=== PATIENT | male | born 1960 | race Caucasian/White ===

== ENCOUNTER 2022-07-05 08:30 | Inpatient (IN) | payer MEDICAID ==
[~2022-07-05] VITALS: Ht 180.3 cm; Wt 99.7 kg
[~2022-07-05 08:30] MED LIST: ALBU18HF2 IH; ATOR10TA87 PO; CARV3.12 PO; FURO-150 PO; LOSA25TA96 PO; POTA8CAP20 PO
[2022-07-05 09:27] LABS: BASOPHILS # (AUTO) 0.1 X10'3 (0-0.2); BASOPHILS % (AUTO) 0.7 % (0-1); EOSINOPHILS % (AUTO) 0.3 % (0-6); HEMATOCRIT 37.8 % (42.0-52.0); HEMOGLOBIN 12.5 g/dl (14.0-17.9); LYMPHOCYTES # (AUTO) 0.5 X10'3 (1.1-4.8); LYMPHOCYTES % (AUTO) 4.7 % (21-51); MEAN CORPUSCULAR HEMOGLOBIN 31.5 PG (27.0-31.0); MEAN CORPUSCULAR VOLUME 95.6 FL (78-98); MEAN PLATELET VOLUME 10.7 FL (7.4-10.4); MONOCYTES # (AUTO) 1.1 X10'3 (0-0.9); MONOCYTES % (AUTO) 10.5 % (2-12); NEUTROPHILS # (AUTO) 8.8 X10'3 (1.8-7.7); NEUTROPHILS % (AUTO) 83.8 % (42-75); PLATELET COUNT 191 X10'3 (140-440); RED BLOOD COUNT 3.95 X10'6 (4.70-6.10); RED CELL DISTRIBUTION WIDTH 14.2 % (11.5-14.5); WHITE BLOOD COUNT 10.5 X10'3 (4.5-11.0)
[2022-07-05 09:28] LABS: ALANINE AMINOTRANSFERASE 45 U/L (12-78); ALBUMIN 3.4 G/DL (3.4-5.0); ALBUMIN/GLOBULIN RATIO 0.9 (1.1-1.5); ALKALINE PHOSPHATASE 93 IU/L (46-116); ANION GAP 10 (8-16); ASPARTATE AMINO TRANSFERASE 34 U/L (10-37); BILIRUBIN,TOTAL 1.6 MG/DL (0.1-1.0); BLOOD UREA NITROGEN 23 MG/DL (7-18); BUN/CREATININE RATIO 12.7 (5.4-32.0); CALCIUM 8.5 MG/DL (8.5-10.1); CHLORIDE 103 MMOL/L (99-107); CREATININE 1.81 MG/DL (0.60-1.10); GLUCOSE 133 MG/DL (70-104); POTASSIUM 4.3 MMOL/L (3.5-5.1); SODIUM 136 MMOL/L (135-145); TOTAL CARBON DIOXIDE 23.1 MMOL/L (24-32); TOTAL PROTEIN 7.1 G/DL (6.4-8.2); eGFR 38 ML/MIN
[2022-07-05] MEDS ORDERED: heparin 10,000 units/1 ML INJ IV PRN (10:30)
[2022-07-05] MEDS ORDERED: nitroGLYCERIN 0.4mg/hour patch TD ONE (10:30)
[2022-07-05] MEDS ORDERED: furosemide 10 MG/1 ML 10ml inj IV ONE (10:35)
[2022-07-05] MEDS ORDERED: amiodarone 150mg/dext, iso-os 100 ML IV ONE (10:35)
[2022-07-05 10:39] LABS: MAGNESIUM 1.9 MG/DL (1.5-2.4)
[2022-07-05 10:41] LABS: APTT 26 SECONDS (22-32)
[2022-07-05 10:46] LABS: ETHANOL < 0.010 GM/DL (0.0-0.010)
[2022-07-05] MEDS ORDERED: carvedilol 6.25mg tablet PO ONE (10:54)
[2022-07-05 10:55] LABS: D-DIMER 2.59 MG/L FEU (0-0.50)
[2022-07-05] MEDS ORDERED: heparin 25,000 UNIT/250ml bag 250 ML IV PRN (11:02)
[2022-07-05] MEDS ORDERED: potassium Cl 20 mEq SR tablet PO PRN ×2 (11:15)
[2022-07-05] MEDS ORDERED: acetaminophen 325mg tablet PO PRN (11:15)
[2022-07-05] MEDS ORDERED: ondansetron/PF 4mg/2ml inj IV PRN (11:15)
[2022-07-05] MEDS ORDERED: magnesium 4gm in 100ml NS 100 ML IV PRN (11:15)
[2022-07-05] MEDS ORDERED: magnesium hydroxide 30ml (MOM) UD suspension PO PRN (11:15)
[2022-07-05] MEDS ORDERED: mag hydrox/Alum hydrox/simeth 30ml oral suspension PO PRN (11:15)
[2022-07-05] MEDS ORDERED: magnesium Cl slow-release 64mg tablet PO PRN (11:15)
[2022-07-05] MEDS ORDERED: potassium Cl 40MEQ/1/2NS 520ml 520 ML IV PRN (11:15)
[2022-07-05] MEDS: K and/or MAG REPLACEMENT MC SCH (11:37)
--- NOTE | 2022-07-05 14:10 | NUR ---
Relieve RN for lunch break. Pt sitting at bedside, resp even and unlabored. No complaint of CP/ chest discomfort. No SOB. Patient on herparin gtt. IV clear and patent, rt inner wrist.
[2022-07-05] MEDS ORDERED: BUME1TAB8 PO (14:32)
[2022-07-05] MEDS ORDERED: ALBU18HF2 INH (14:32)
[2022-07-05] MEDS ORDERED: AMIO200T27 PO (14:32)
[2022-07-05] MEDS ORDERED: LOSA25TA41 PO (14:32)
[2022-07-05] MEDS ORDERED: SPIR25TA5 PO (14:32)
[2022-07-05] MEDS ORDERED: APIX5TAB3 PO (14:32)
[2022-07-05] MEDS ORDERED: OMEP20CA15 PO (14:32)
[2022-07-05] MEDS ORDERED: METO-384 PO (14:32)
[2022-07-05] MEDS ORDERED: LORazepam 2 mg/ml vial IV PRN (14:45)
[2022-07-05] MEDS ORDERED: haloperidol lactate 5mg/ml inj IM PRN (14:45)
[2022-07-05] MEDS ORDERED: haloperidol 5mg tablet PO PRN (14:45)
--- NOTE | 2022-07-05 16:00 | NUR ---
Patient in room PCU 3018. I have received report from Marcial WANG and had the opportunity to ask questions and assume patient care. Pt settled into room. instructions given for call light, TV,and phone. at bedside.POC reviewed.
[2022-07-05 16:26] VITALS: BP 107/61
--- NOTE | 2022-07-05 16:40 | NUR ---
PAGER ID: [phone] MESSAGE: [id number] Clum. C/O pain in ABD 01/31 D/T coughing he thinks. Can you consider pain meds for him. Sarah [facility] #[id number]
[2022-07-05] MEDS ORDERED: HYDROcodone/acetaminophen 10/325mg tab PO PRN (16:50)
[2022-07-05] MEDS ORDERED: HYDROcodone/acetaminophen 5mg/325mg tablet PO PRN (16:50)
[2022-07-05 18:00] VITALS: BP 111/90
--- NOTE | 2022-07-05 18:03 | NUR ---
RT at bedside. Pt having a hard time with SOB.
[2022-07-05 18:06] LABS: LIPASE 73 U/L (73-393)
[2022-07-05] MEDS ORDERED: ipratropium/albuterol 3ml nebule NEB PRN ×2 (18:15→22:20)
--- NOTE | 2022-07-05 18:24 | NUR ---
PAGER ID: [phone] MESSAGE: [id number] Clum. Family states Pt didnt understand the real meaning of DNR. Pt looks like he is going to code soon. Sarah otero 1001
--- NOTE | 2022-07-05 18:41 | NUR ---
code status changed to full code via telephone with Dr Bartlett witnessed by Sarah Calderon RN and Glo Aguilar RN. Glo and went to bedside and , Daughter both wanted full code status. Pt unable to verbalize wished at this time.
--- NOTE | 2022-07-05 18:55 | NUR ---
Problems reprioritized. Patient report given, questions answered & plan of care reviewed with Katey WANG and soldering machine setter. Family remains at bedside. Pt sleeping. Diapiretic. BP 84/65 HR 108. O2 sat 98% on 2L. DNR band removed at family request. They do not believe Pt knew what it really meant. Dr Bartlett notified. Code status changed. Pt not alert enough to question D/T ativan 2mg iv given per Dr Bartlett order. Dr Bartlett had a discussion with PT prior to administration in regard to potential side effect on kidney function. Pt stated he wanted ativan despite side effect. Addendum: 07/05/22 at 1903 by Sarah Calderon RN Amended: Links added.
--- NOTE | 2022-07-05 19:08 | NUR ---
Patient in room PCU 3018. I have received report from Sarah WANG and had the opportunity to ask questions and assume patient care. Patient code status changed from DNR to Full Code, Per Dhruv. Patient has Bipap available, patient diaphoretic, VS stable, RT performed ABG; results acceptable for remaining on 2 l NC, Per RT. Patient s family at bedside. Vital signs taken q15 minutes currently. Matias Gracia RN
[2022-07-05 19:13] VITALS: BP 136/85
[2022-07-05 19:14] LABS: ABG BASE EXCESS -1.3 mmol/L (-2.0-2.0); ABG HCO3 22.9 mmol/L (22.0-26.0); ABG OXYGEN SATURATION 95.2 % (94-97); ABG PO2 (T) 82.4 mmHg (75.0-100.0); ALLEN'S TEST POSITIVE; FCOHb 0.5 % (0.0-3.9); FMetHb 0.2 % (0.0-1.5); FO2Hb 94.5 % (94-97); PATIENT TEMPERATURE 37.8; TOTAL HEMOGLOBIN 13.5 G/dl (14.0-17.9)
[2022-07-05] MEDS: furosemide 10 MG/1 ML 10ml inj IV SCH (19:26)
--- NOTE | 2022-07-05 19:28 | NUR ---
3018b-ADOLFO HULL-REQUESTING BUTT-PATIENT ON LASIX-CODE STATUS CHANGED FROM DNR TO FULL-PATIENT OBTUNDED-GOT 2 MG ATIVAN ON DAY SHIFT. PLEASE CALL CED Jasso CYNTHIA RN
[2022-07-05] MEDS: enoxaparin 100mg/ml syringe SUBCUT SCH (19:32)
[2022-07-05] MEDS: metoprolol tartrate 50mg tablet PO SCH (19:47)
[2022-07-05] MEDS ORDERED: apixaban 5mg tablet PO SCH (20:00)
[2022-07-05] MEDS: docusate sod 100mg capsule PO SCH (20:00)
[2022-07-05] MEDS ORDERED: LIDOcaine 2% 10ml TOPICAL JELLY (Urojet) MM ONE (20:35)
[2022-07-05 21:00] VITALS: BP 150/125
[2022-07-05 21:39] LABS: BASOPHILS % (AUTO) 0.3 % (0-1); EOSINOPHILS % (AUTO) 0.2 % (0-6); HEMATOCRIT 40.2 % (42.0-52.0); HEMOGLOBIN 13.2 g/dl (14.0-17.9); LYMPHOCYTES # (AUTO) 0.8 X10'3 (1.1-4.8); LYMPHOCYTES % (AUTO) 7.4 % (21-51); MEAN CORPUSCULAR HEMOGLOBIN 31.7 PG (27.0-31.0); MEAN CORPUSCULAR HGB CONC 32.9 g/dL (33.0-36.5); MEAN CORPUSCULAR VOLUME 96.2 FL (78-98); MEAN PLATELET VOLUME 10.8 FL (7.4-10.4); MONOCYTES # (AUTO) 1.3 X10'3 (0-0.9); MONOCYTES % (AUTO) 12.1 % (2-12); NEUTROPHILS # (AUTO) 8.3 X10'3 (1.8-7.7); PLATELET COUNT 214 X10'3 (140-440); RED BLOOD COUNT 4.18 X10'6 (4.70-6.10); RED CELL DISTRIBUTION WIDTH 14.4 % (11.5-14.5); WHITE BLOOD COUNT 10.4 X10'3 (4.5-11.0)
--- NOTE | 2022-07-05 21:50 | NUR ---
PATIENT MONITORED Q15 MINUTES BEGINNING AT 1913 DUE TO UNSTABLE NATURE OF PATIENT MENTATION AND RESPIRATORY STATUS AT 1800, AND DUE TO CODE STATUS CHANGE DURING SHIFT CHANGE. PATIENT AGITATED, CLIMBING OUT OF BED-ANSWERED CALL FROM DR. NORRIS AT [facility] REGARDING CRITICAL POTASSIUM OF 6.2 SIMULTANEOUSLY REQUESTED AIDE TO MONITOR PATIENT WHILE OBTAINING MEDICATION AND RESTRAINT ORDERS. AIDE ENTERED ROOM, FOUND PATIENT ON GROUND. PATIENT THEN ASSISTED BACK TO BED BY APPROXIMATELY 2220 BY [facility], ASSISTANT CLINICAL DIRECTOR CALLED DENIA HOLLOWAY FOR ASSISTANCE. PATIENT SUBSEQUENTLY RESTRAINED, VITAL SIGNS OBTAINED AND AND MEDICATIONS ADMINISTERED. NO OTHER PROVIDER ORDERS AT THIS TIME. RODRIGO WANG
[2022-07-05 21:51] LABS: ALANINE AMINOTRANSFERASE 631 U/L (12-78); ALBUMIN 3.7 G/DL (3.4-5.0); ALBUMIN/GLOBULIN RATIO 0.9 (1.1-1.5); ALKALINE PHOSPHATASE 102 IU/L (46-116); ANION GAP 9 (8-16); ASPARTATE AMINO TRANSFERASE 778 U/L (10-37); BILIRUBIN,TOTAL 3.4 MG/DL (0.1-1.0); BLOOD UREA NITROGEN 29 MG/DL (7-18); BUN/CREATININE RATIO 11.4 (5.4-32.0); CALCIUM 8.8 MG/DL (8.5-10.1); CHLORIDE 101 MMOL/L (99-107); CREATININE 2.55 MG/DL (0.60-1.10); GLUCOSE 140 MG/DL (70-104); SODIUM 135 MMOL/L (135-145); TOTAL CARBON DIOXIDE 24.6 MMOL/L (24-32); TOTAL PROTEIN 7.6 G/DL (6.4-8.2); eGFR 26 ML/MIN
[2022-07-05 22:00] VITALS: BP 154/82
[2022-07-05 22:02] LABS: POTASSIUM 6.2 MMOL/L (3.5-5.1)
[2022-07-05] MEDS ORDERED: dextrose 50%-water 50ml dispensing syringe IV ONE (22:20)
[2022-07-05] MEDS ORDERED: insulin regular, human U-100 3ml vial - multi-dose IV PRN (22:40)
[2022-07-05] MEDS ORDERED: CALCIUM GLUC 1gm/50ml NACL,iso 50 ML IV ONE (22:40)
[2022-07-05] MEDS: thiamine 100mg/ml 2ml inj. IV SCH (22:58)
[2022-07-05 23:00] VITALS: BP 131/99
[2022-07-05] MEDS ORDERED: albuterol 2.5 MG/3 ML nebule CONTNEB PRN (23:15)
--- NOTE | 2022-07-05 23:58 | NUR ---
PATIENT O2 SATS DROPPED TO 60'S, SLOPE HOIST OPERATOR SUMMONED STAFF TO CHECK ON PATIENT. PATIENT THEN CAME OFF MONITOR, STAFF FOUND PATIENT UNRESPONSIVE, CPR BEGAN, CODE BLUE CALLED OVERHEAD. CODE LASTED UNTIL APPROXIMATELY 0011; ORDERS TO TRANSFER TO ICU, REPORT GIVEN TO MARISOL WANG. RODRIGO WANG
[2022-07-06] VITALS (19 sets, daily range): BP systolic 87–132; BP diastolic 50–82
--- NOTE | 2022-07-06 00:24 | NUR ---
Patient taken to ICU S/P Code Blue/respiratory/cardiac arrest. Report given to Yana WANG.
[2022-07-06 00:45] LABS: BASOPHILS % (AUTO) 0.4 % (0-1); EOSINOPHILS % (AUTO) 0.2 % (0-6); HEMATOCRIT 39.3 % (42.0-52.0); LYMPHOCYTES # (AUTO) 1.1 X10'3 (1.1-4.8); LYMPHOCYTES % (AUTO) 9.2 % (21-51); MEAN CORPUSCULAR HEMOGLOBIN 32.3 PG (27.0-31.0); MEAN CORPUSCULAR HGB CONC 32.9 g/dL (33.0-36.5); MEAN CORPUSCULAR VOLUME 98.2 FL (78-98); MEAN PLATELET VOLUME 10.1 FL (7.4-10.4); MONOCYTES # (AUTO) 1.1 X10'3 (0-0.9); MONOCYTES % (AUTO) 9.3 % (2-12); NEUTROPHILS # (AUTO) 9.5 X10'3 (1.8-7.7); NEUTROPHILS % (AUTO) 80.9 % (42-75); PLATELET COUNT 180 X10'3 (140-440); RED BLOOD COUNT 4.01 X10'6 (4.70-6.10); RED CELL DISTRIBUTION WIDTH 14.9 % (11.5-14.5); WHITE BLOOD COUNT 11.7 X10'3 (4.5-11.0)
[2022-07-06 00:53] LABS: ABG BASE EXCESS -6.1 mmol/L (-2.0-2.0); ABG OXYGEN SATURATION 94.2 % (94-97); ABG PCO2 (T) 55.3 mmHg (35.0-48.0); ABG PO2 (T) 91.8 mmHg (75.0-100.0); ALLEN'S TEST POSITIVE; FCOHb 0.6 % (0.0-3.9); FMetHb 0.4 % (0.0-1.5); FO2Hb 93.3 % (94-97); PATIENT TEMPERATURE 37.6; PEEP 5 cm H2O; TOTAL HEMOGLOBIN 13.9 G/dl (14.0-17.9)
[2022-07-06] MEDS ORDERED: propofol 1000mg/100ml bottle 100 ML IV ONE (00:54)
[2022-07-06] MEDS ORDERED: normal saline 1000ml 1,000 ML IV SCH (01:00)
[2022-07-06] MEDS ORDERED: FENTANYL-0.9 % NACL/PF 100 ML IV PRN (01:00)
--- NOTE | 2022-07-06 01:00 | NUR ---
Patient in room CICU 2013. I have received report from Katey WANG and had the opportunity to ask questions and assume patient care.
[2022-07-06 01:18] LABS: ALBUMIN 3.3 G/DL (3.4-5.0); ALKALINE PHOSPHATASE 100 IU/L (46-116); ANION GAP 12 (8-16); BILIRUBIN,TOTAL 4.7 MG/DL (0.1-1.0); BLOOD UREA NITROGEN 31 MG/DL (7-18); BUN/CREATININE RATIO 10.5 (5.4-32.0); CALCIUM 9.6 MG/DL (8.5-10.1); CHLORIDE 104 MMOL/L (99-107); CREATININE 2.94 MG/DL (0.60-1.10); GLUCOSE 62 MG/DL (70-104); MAGNESIUM 2.5 MG/DL (1.5-2.4); POTASSIUM 4.5 MMOL/L (3.5-5.1); SODIUM 141 MMOL/L (135-145); TOTAL CARBON DIOXIDE 25.1 MMOL/L (24-32); eGFR 22 ML/MIN
[2022-07-06] MEDS: propofol 1000mg/100ml bottle 100 ML IV SCH ×2 (01:34→08:50)
[2022-07-06] MEDS: dextrose 50%-water 50ml dispensing syringe IV PRN ×2 (01:36→03:09)
[2022-07-06 01:39] LABS: ALANINE AMINOTRANSFERASE 1279 U/L (12-78); ALBUMIN/GLOBULIN RATIO 0.9 (1.1-1.5); ASPARTATE AMINO TRANSFERASE 1998 U/L (10-37)
[2022-07-06 02:27] LABS: LIPASE 74 U/L (73-393)
[2022-07-06] MEDS ORDERED: ringers solution, lacted 1,000 ML IV ONE ×2 (03:00→04:50)
[2022-07-06] MEDS ORDERED: sodium bicarbonate (8.4%) inj. 150 MEQ in dextrose 5%-water 1,000 ML IV SCH (03:00)
[2022-07-06] MEDS ORDERED: vancomycin/NS 1 GM ADD-VANTAGE 250 ML IV ONE (03:00)
[2022-07-06] MEDS ORDERED: sodium bicarbonate (8.4%) 1 mEq/ml syringe IV ONE (03:00)
--- NOTE | 2022-07-06 03:08 | NUR ---
Multiple unsuccessful attempts to reach Dr. Purcell. Call to Dr. Lopez to review critical labs and update MD on patients condition; received multiple new orders.
[2022-07-06 03:28] LABS: ABG BASE EXCESS -1.3 mmol/L (-2.0-2.0); ABG HCO3 23.4 mmol/L (22.0-26.0); ABG OXYGEN SATURATION 93.6 % (94-97); ABG PCO2 (T) 38.8 mmHg (35.0-48.0); ABG PO2 (T) 71.8 mmHg (75.0-100.0); ALLEN'S TEST POSITIVE; FCOHb 0.4 % (0.0-3.9); FMetHb 0.3 % (0.0-1.5); FO2Hb 92.9 % (94-97); PATIENT TEMPERATURE 36.7; PEEP 5 cm H2O; RESPIRATORY RATE 18 b/min; TIDAL VOLUME 450 mL; TOTAL HEMOGLOBIN 12.4 G/dl (14.0-17.9)
--- NOTE | 2022-07-06 05:05 | NUR ---
Vanco Stopped, Called Pharmacy and Dr Purcell to notify that patient developed welts all over body after starting vanco.
[2022-07-06 05:19] LABS: CLARITY,URINE CLOUDY (Clear); COLOR,URINE RED (Yellow); UA COLLECTION TYPE FOLEY CATH
[2022-07-06 05:20] LABS: BACTERIA,URINE 1+ /HPF (Neg); RBC,URINE TNTC /HPF (0-2); SQUAMOUS EPITHELIAL CELL,UR MODERATE /LPF (FEW)
[2022-07-06 05:27] LABS: URINE AMPHETAMINE SCREEN POSITIVE (Neg); URINE BARBITUATE SCREEN NEGATIVE (Neg); URINE BENZODIAZEPINES SCREEN NEGATIVE (Neg); URINE CANNABINOID SCREEN NEGATIVE (Neg); URINE COCAINE SCREEN NEGATIVE (Neg); URINE METHADONE SCREEN NEGATIVE (Neg); URINE OPIATE SCREEN POSITIVE (Neg); URINE PHENCYCLIDINE SCREEN NEGATIVE (Neg)
--- NOTE | 2022-07-06 06:14 | NUR ---
Problems reprioritized. Patient report given, questions answered & plan of care reviewed with Pat WANG.
--- NOTE | 2022-07-06 07:16 | NUR ---
Patient in room [facility] 2014. I have received report from Yana WANG and had the opportunity to ask questions and assume patient care. Addendum: 07/06/22 at 0716 by Pat Damon RN Amended: Links added.
--- NOTE | 2022-07-06 07:46 | NUR ---
Initial: Pt admitted w/ CHF exacerbation and VA, s/p code blue and now intubated per EMR. Will place TF recs below if expected prolonged intubation. Otherwise advance to Heart Healthy diet upon extubation. [facility] 07/05. Will continue to monitor. Recs: 1) IF TF, Continuous TF using Vital HP at 80ml/hr goal to provide 1900ml volume, 1920kcals, 168g protein, 1605ml free water; Monitor Propofol rate and adjust as needed 2) IF TF, Additional water flush 100ml Q4H 3) IF TF, PALB Q / 4) Daily wts 5) Routine bowel care 6) Routine thimaine and folic acid for EtOH hx Addendum: 07/06/22 at [address] Amended: Links added.
[2022-07-06] MEDS: metoprolol tartrate 50mg tablet PO SCH (07:47)
[2022-07-06] MEDS: furosemide 10 MG/1 ML 10ml inj IV SCH (07:47)
[2022-07-06] MEDS: thiamine 100mg/ml 2ml inj. IV SCH ×2 (07:47→13:00)
[2022-07-06] MEDS ORDERED: folic acid 1mg/0.2ml inj IV SCH (08:00)
[2022-07-06] MEDS: docusate sod 100mg capsule PO SCH (08:00)
[2022-07-06] MEDS: enoxaparin 100mg/ml syringe SUBCUT SCH (08:00)
[2022-07-06] MEDS ORDERED: cefepime 1GM/NS ADD-VANTAGE 100 ML IV SCH (08:00)
[2022-07-06] MEDS: K and/or MAG REPLACEMENT MC SCH (08:00)
[2022-07-06] MEDS ORDERED: spironolactone 25 MG tablet PO SCH (08:30)
--- NOTE | 2022-07-06 12:00 | NUR ---
Dr. Lopez spoke with patient's and they decided to withdraw care once the family comes to see pt.
[2022-07-06] MEDS ORDERED: morphine 10mg/ml inj. IV PRN (12:20)
--- NOTE | 2022-07-06 13:16 | NUR ---
RN IS TO DOCUMENT YES TO ALL APPLICABLE AREAS Pronouncement of : 1. Time Physician Notified: 1314 2. Date of : 07/06/22 3. Time of : 1314 4. DNR/Withdraw life support documented:yes 5. Monitor strip has been placed on chart:yes 6. Assessment process is of one-minute duration and includes following criteria: a) Patient is unresponsive to all stimuli: yes b) Pupils fixed and non-reactive:yes c) Auscultation of precordium reveals absence of heart tones:yes d) Auscultation of lungs reveals absence of breath sounds:yes e) Absence of blood pressure / all vital signs:yes f) QRS complexes are not present on monitor / EKG strip:yes g) Pacer spikes without capture:yes 4. Comments: Family at bedside during expiration Addendum: 07/06/22 at 1323 by Pat Damon RN AICD spikes present
--- NOTE | 2022-07-06 15:04 | NUR ---
[facility] Ref. # [id number]. KATHLEEN called [facility] in [place] as that is the mortuary of choice.
[2022-07-07] MEDS ORDERED: mineral oil/petrolatum ophthal oint EACHEYE SCH (02:00)
[2022-07-07] MEDS ORDERED: LORazepam 2 mg/ml vial IV PRN (14:45)
[2022-07-07] MEDS ORDERED: LORazepam 1 MG tablet PO PRN (14:45)
[2022-07-09] MEDS ORDERED: LORazepam 2 mg/ml vial IV PRN (14:45)
[2022-07-09] MEDS ORDERED: LORazepam 1 MG tablet PO PRN (14:45)
[2022-07-10] MEDS ORDERED: folic acid 1mg tablet PO SCH (08:00)
[2022-07-10] MEDS ORDERED: thiamine 100mg tablet PO SCH (08:00)
== END 2022-07-06 15:55 | DRG 720 ==
LOC: ER 08:31 → ED HOLD 11:19 → EDBEDREQ 15:06 → PCU 3S 15:46 → CICU 2S 07-06 00:20
PROVIDERS: ADMIT Family Medicine; ATTEND Family Medicine
PROC: 5A1935Z Respiratory Ventilation, Less than 24 Consecutive Hours (ICD-10-PCS; principal; 2022-07-06)
PROC: 5A12012 Performance of Cardiac Output, Single, Manual (ICD-10-PCS; 2022-07-06)
PROC: 0BH17EZ Insertion of Endotracheal Airway into Trachea, Via Natural or Artificial Opening (ICD-10-PCS; 2022-07-06)
DX: A41.9 Sepsis, unspecified organism (principal); I46.9 Cardiac arrest, cause unspecified; J69.0 Pneumonitis due to inhalation of food and vomit; J96.00 Acute respiratory failure, unspecified whether with hypoxia or hypercapnia; N17.0 Acute kidney failure with tubular necrosis; I13.0 Hypertensive heart and chronic kidney disease with heart failure and stage 1 through stage 4 chronic kidney disease, or unspecified chronic kidney disease; I21.A1 Myocardial infarction type 2; I50.23 Acute on chronic systolic (congestive) heart failure; N18.9 Chronic kidney disease, unspecified; E87.20 Acidosis, unspecified; E78.5 Hyperlipidemia, unspecified; G47.30 Sleep apnea, unspecified; F10.20 Alcohol dependence, uncomplicated; Z66 Do not resuscitate; I42.9 Cardiomyopathy, unspecified; I48.91 Unspecified atrial fibrillation; Z91.199 Patient's noncompliance with other medical treatment and regimen due to unspecified reason; Z95.810 Presence of automatic (implantable) cardiac defibrillator; Z88.0 Allergy status to penicillin; Z79.899 Other long term (current) drug therapy
CPT/HCPCS: 36415; 36600; 71045; 80053; 80305; 80320; 81001; 82140; 82803; 82948; 83605; 83690; 83735; 83880; 84145; 84484; 85018; 85025; 85379; 85610; 85730; 87070; 87081; 87088; 93005; 93306; 94002; 94640; 94760; 99291; A6213; A6449; G0378; J0282; J0610; J0692; J1644; J1650; J1815; J1940; J2060; J2274; J2704; J3010; J3370; J3411; J3490; J7030; J7070; J7120